=== PATIENT | male | born 1950 | race Hispanic/Latino ===

== ENCOUNTER 2021-08-04 16:24 | Emergency (ER) | payer MEDICARE ==
[2021-08-04] MEDS ORDERED: Cephalexin 250 MG CAP ONE (17:08)
[2021-08-04] MEDS ORDERED: Boostrix 0.5 ML (Tdap) VIAL ONE (17:08)
== END 2021-08-04 17:20 | disposition home or self-care (01) ==
LOC: BURERS 16:24
DX: S61.211A Laceration without foreign body of left index finger without damage to nail, initial encounter (principal); W29.0XXA Contact with powered kitchen appliance, initial encounter
CPT/HCPCS: 12002; 90471; 90715